=== PATIENT | male | born 1960 | race Two or more races ===

== ENCOUNTER 2017-10-07 18:53 | Inpatient (IN) | payer SELFPAY ==
[~2017-10-07] VITALS: Ht 190.5 cm; Wt 79.4 kg
[2017-10-07] MEDS ORDERED: AMPICILLIN SOD/SULBACTAM NA 3 G in SODIUM CHLORIDE 0.9% 100 ML IV STA (20:13)
[2017-10-07] MEDS ORDERED: IBUPROFEN 600MG TABLET PO ONE (20:15)
[2017-10-07] MEDS ORDERED: TETANUS, DIPHTHERIA, PERTUSSIS VAC/PF 0.5ML (>7YR OLD) IM ONE (20:15)
[2017-10-07] MEDS ORDERED: VANCOMYCIN 1 G PREMIX 200 ML IV SCH (20:45)
[2017-10-07] MEDS ORDERED: LIDOCAINE HCL 1%/EPI 1:200,000 30 ML VIAL MC ONE (20:45)
[2017-10-07] MEDS ORDERED: BACITRACIN ZINC OINT UDPKT TOP ONE (20:45)
[2017-10-07] MEDS ORDERED: AMPICILLIN SOD/SULBACTAM NA 3 G in SODIUM CHLORIDE 0.9% 100 ML IV NR (21:15)
[2017-10-07 21:57] LABS: BASOPHILS % 0.4 % (0.0-2.0); EOSINOPHILS % 0.8 % (0.0-5.0); HEMATOCRIT. 40.3 % (42.0-52.0); HEMOGLOBIN. 13.6 g/dL (14.0-18.0); LYMPHOCYTES % 18.4 % (20.0-50.0); MEAN CORPUSCULAR HEMOGLOBIN 35.7 pg (28.0-32.0); MEAN CORPUSCULAR VOLUME 106.1 fL (80.0-94.0); MEAN PLATELET VOLUME 7.6 fl (7.4-10.4); MONOCYTES % 14.3 % (2.0-8.0); NEUTROPHILS % 66.1 % (40.0-76.0); PLATELET 173 x1000/uL (130-400)
[2017-10-07 22:02] LABS: CHLORIDE 104 mEq/L (98-107)
[2017-10-07 22:06] LABS: INR 1.1; PARTIAL THROMBOPLASTIN TIME 28.2 sec (23.4-31.0)
[2017-10-07] MEDS ORDERED: DOCUSATE SODIUM 100MG CAPSULE PO PRN (23:15)
[2017-10-07] MEDS ORDERED: MAGNESIUM/ALUMINUM HYDROXIDE/SIMETHICONE 30ML UDC PO PRN (23:15)
[2017-10-07] MEDS ORDERED: ONDANSETRON HCL 4MG/2ML VIAL IV PRN (23:15)
[2017-10-07] MEDS ORDERED: ACETAMINOPHEN 325MG TABLET PO PRN (23:15)
[2017-10-07] MEDS ORDERED: NITROGLYCERIN 0.4MG TABLET SL SL PRN (23:15)
[2017-10-07] MEDS ORDERED: LORAZEPAM 0.5MG TABLET PO PRN (23:15)
[2017-10-07] MEDS ORDERED: CLONIDINE 0.1MG TABLET PO PRN (23:15)
[2017-10-07] MEDS ORDERED: PIPERACILLIN/TAZ 3.375G PREMIX 50 ML IV SCH (23:15)
[2017-10-07] MEDS ORDERED: ZOLPIDEM TARTRATE 5MG TABLET PO PRN (23:15)
[2017-10-07] MEDS ORDERED: GUAIFENESIN 200MG/10ML SUGAR FREE UDC PO PRN (23:15)
[2017-10-07] MEDS ORDERED: NA PHOS,M-B/NA PHOS,DI-BA ENEMA 118ML PR PRN (23:15)
[2017-10-07] MEDS ORDERED: IPRATROPIUM/ALBUTEROL 0.5-3(2.5)MG/3ML NEB INH PRN (23:15)
[2017-10-07] MEDS ORDERED: KETOROLAC 15MG/ML VIAL IV PRN (23:15)
[2017-10-07] MEDS ORDERED: DIPHENHYDRAMINE 50MG/ML VIAL IV PRN (23:15)
[2017-10-07] MEDS ORDERED: PIPERACILLIN/TAZ 3.375G PREMIX 50 ML IV NR (23:45)
[2017-10-08 01:18] LABS: ETHANOL BLOOD < 10 mg/dL; TOTAL IRON BINDING CAPACITY 217 ug/dL (250-450)
[2017-10-08 02:45] VITALS: BP 121/75
[2017-10-08 03:03] LABS: FOLIC ACID (FOLATE) SERUM 12.9 ng/mL (>5.38)
[2017-10-08 04:00] VITALS: BP 121/76
[2017-10-08] MEDS: DILTIAZEM HCL 60MG TABLET PO SCH ×3 (05:45→17:27)
[2017-10-08 08:00] VITALS: BP 102/58
[2017-10-08] MEDS: ENOXAPARIN 40MG/0.4ML SYR SUBCUT SCH (09:47)
[2017-10-08] MEDS: PIPERACILLIN/TAZ 3.375G PREMIX 50 ML IV SCH ×2 (09:47→17:32)
[2017-10-08 12:00] VITALS: BP_SYST 111; BP_SYST 140; BP_DIAS 63; BP_DIAS 86
[2017-10-08] MEDS: CYANOCOBALAMIN 1000MCG/ML VIAL IM SCH (13:01)
[2017-10-08 16:00] VITALS: BP_SYST 107; BP_SYST 154; BP_DIAS 66; BP_DIAS 85
[2017-10-08] MEDS: AMMONIUM LACTATE 12% LOTION 240ML TOP SCH (17:32)
[2017-10-08 20:00] VITALS: BP 106/59
[2017-10-09] VITALS: BP 117/62
[2017-10-09] MEDS: DILTIAZEM HCL 60MG TABLET PO SCH ×4 (00:46→18:00)
[2017-10-09] MEDS: PIPERACILLIN/TAZ 3.375G PREMIX 50 ML IV SCH ×2 (01:55→09:02)
[2017-10-09 04:00] VITALS: BP 128/88
[2017-10-09 08:00] VITALS: BP 125/79
[2017-10-09] MEDS: CYANOCOBALAMIN 1000MCG/ML VIAL IM SCH (09:00)
[2017-10-09] MEDS: AMMONIUM LACTATE 12% LOTION 240ML TOP SCH ×2 (09:01→18:03)
[2017-10-09] MEDS: ENOXAPARIN 40MG/0.4ML SYR SUBCUT SCH (09:01)
[2017-10-09 12:00] VITALS: BP 112/69
[2017-10-09 16:00] VITALS: BP 104/74
[2017-10-09] MEDS: CLINDAMYCIN HCL 150MG CAPSULE PO SCH (18:04)
[2017-10-09 20:39] VITALS: BP 116/73
[2017-10-10] VITALS: BP 134/77
[2017-10-10] MEDS: DILTIAZEM HCL 60MG TABLET PO SCH ×5 (02:15→23:41)
[2017-10-10] MEDS: CLINDAMYCIN HCL 150MG CAPSULE PO SCH ×4 (02:15→17:37)
[2017-10-10 04:00] VITALS: BP 114/74
[2017-10-10 08:00] VITALS: BP 108/67
[2017-10-10] MEDS: ENOXAPARIN 40MG/0.4ML SYR SUBCUT SCH (08:29)
[2017-10-10] MEDS: CYANOCOBALAMIN 1000MCG/ML VIAL IM SCH (08:29)
[2017-10-10] MEDS: AMMONIUM LACTATE 12% LOTION 240ML TOP SCH ×2 (08:30→16:44)
[2017-10-10 12:00] VITALS: BP 123/80
[2017-10-10 16:00] VITALS: BP 119/68
[2017-10-10 20:00] VITALS: BP 114/74
[2017-10-11] VITALS: BP 113/75
[2017-10-11] MEDS: CLINDAMYCIN HCL 150MG CAPSULE PO SCH ×4 (00:41→17:31)
[2017-10-11 04:00] VITALS: BP 116/84
[2017-10-11] MEDS: AMMONIUM LACTATE 12% LOTION 240ML TOP SCH ×2 (04:29→17:30)
[2017-10-11] MEDS: DILTIAZEM HCL 60MG TABLET PO SCH ×3 (06:16→17:31)
[2017-10-11 08:00] VITALS: BP 116/81
[2017-10-11] MEDS: ENOXAPARIN 40MG/0.4ML SYR SUBCUT SCH (09:28)
[2017-10-11] MEDS: CYANOCOBALAMIN 1000MCG/ML VIAL IM SCH (09:28)
[2017-10-11 12:00] VITALS: BP 122/83
[2017-10-11 16:00] VITALS: BP 128/82
[2017-10-11 20:00] VITALS: BP 112/76
[2017-10-12] VITALS (7 sets, daily range): BP systolic 110–128; BP diastolic 73–88
[2017-10-12] MEDS: CLINDAMYCIN HCL 150MG CAPSULE PO SCH ×4 (00:13→17:48)
[2017-10-12] MEDS: DILTIAZEM HCL 60MG TABLET PO SCH ×4 (00:13→17:48)
[2017-10-12] MEDS: AMMONIUM LACTATE 12% LOTION 240ML TOP SCH ×2 (08:34→17:48)
[2017-10-12] MEDS: ENOXAPARIN 40MG/0.4ML SYR SUBCUT SCH (08:34)
[2017-10-12] MEDS: CYANOCOBALAMIN 1000MCG/ML VIAL IM SCH (08:34)
[2017-10-13] VITALS: BP 119/75
[2017-10-13] MEDS: CLINDAMYCIN HCL 150MG CAPSULE PO SCH ×3 (00:07→12:43)
[2017-10-13] MEDS: DILTIAZEM HCL 60MG TABLET PO SCH ×3 (00:07→12:43)
[2017-10-13 04:00] VITALS: BP 103/65
[2017-10-13 08:00] VITALS: BP 117/78
[2017-10-13] MEDS: CYANOCOBALAMIN 1000MCG/ML VIAL IM SCH (08:36)
[2017-10-13] MEDS: AMMONIUM LACTATE 12% LOTION 240ML TOP SCH (08:37)
[2017-10-13] MEDS: ENOXAPARIN 40MG/0.4ML SYR SUBCUT SCH (08:37)
[2017-10-13 12:00] VITALS: BP 115/79
== END 2017-10-13 16:35 | disposition home or self-care (01) | DRG 384 ==
LOC: ER 19:10 → 6EST 22:45 → ENRESERV 23:46
PROVIDERS: ADMIT Internal Medicine; ATTEND Internal Medicine
PROC: 0HQLXZZ Repair Left Lower Leg Skin, External Approach (ICD-10-PCS; principal; 2017-10-07)
DX: S81.852A Open bite, left lower leg, initial encounter (principal); E44.0 Moderate protein-calorie malnutrition; D51.9 Vitamin B12 deficiency anemia, unspecified; L03.116 Cellulitis of left lower limb; F17.210 Nicotine dependence, cigarettes, uncomplicated; L03.119 Cellulitis of unspecified part of limb; M79.89 Other specified soft tissue disorders; Y93.89 Activity, other specified; Y92.89 Other specified places as the place of occurrence of the external cause; Z59.0 Homelessness; W54.0XXA Bitten by dog, initial encounter; Y99.8 Other external cause status
CPT/HCPCS: 12002; 36415; 71045; 73590; 80053; 82607; 82746; 83036; 83540; 83550; 83880; 85025; 85610; 85730; 87040; 90471; 90715; 93005; 93970; 96365; 96368; 96375; 96376; 97116; 97162; 97166; 99285; G0482; J0295; J1650; J2543; J3370; J3420; J7050